=== PATIENT | female | born 2005 | race African-American/Black ===

== ENCOUNTER 2025-01-04 15:34 | Emergency (ER) | payer MEDICAID, SELFPAY ==
--- NOTE | ~2025-01-04 | US_ITS ---
EXAMINATION: US OB <= 14 weeks fetus INDICATION: vaginal bleeding, cramping, (+) test TECHNIQUE: Sonography of the pelvis was performed by transabdominal techniques. COMPARISON: None. RESULT: Uterus: 12.5 x 5.6 x 7.6 cm. Anteverted. Homogenous myometrium. Intrauterine gestational sac: Not seen. Right ovary: 4.9 x 1.5 x 2.6 cm. Vascular flow is present. No adnexal mass. Left ovary: 3.3 x 2.3 x 2.6 cm. Vascular flow is present. No adnexal mass. Pelvis free fluid: None. IMPRESSION: No intrauterine gestational sac detected. In the setting of a positive test, this would rep resent of unknown location. No sonographic evidence of ectopic . Reviewed, dictated and finalized at location K. IMPRESSION: No intrauterine gestational sac detected. In the setting of a positive pregnanc y test, this would represent of unknown location. No sonographic evid ence of ectopic .
[2025-01-04 15:38] VITALS: BP 169/96; PULSE 77; RESP 18; TEMP 36.6; O2SAT 100
[2025-01-04 18:43] LABS: BEDSIDEPREGUCG Positive (Negative)
--- NOTE | 2025-01-04 18:46 | ED_ITS ---
HPI - Female Genitourinary General Chief complaint: Vaginal Bleeding Stated complaint: vag bleeding s/p miscarriage Time Seen by Provider: 01/04/25 18:08 Source: patient Mode of arrival: ambulatory Limitations: no limitations History of Present Illness HPI Narrative: This is a 19-year-old female who presents to the ED for chief complaint of vaginal bleeding with clots for the past several days. Patient states that on December 30 she ?had a miscarriage. ? She is able to show me pictures on her phone of the aborted fetus. States that her last menstrual period was around 3 months prior to her positive home test on 11/07/2024. States she did not realize how far along she was at the time of this miscarriage. States that she was at that time. Had not seen OB before. States that she is still passing occasional clots and blood as well as having some lower abdominal cramping. Denies nausea, vomiting, syncope, lightheadedness, dizziness, fevers, chills, vaginal discharge, flank pain or urinary symptoms. Related Data Allergies Allergy/AdvReac Type Severity Reaction Status Date / Time No Known Allergies Allergy Verified 01/04/25 15:36 Review of Systems 2 Review of Systems: All systems as dictated in HPI Exam 2 Narrative: GENERAL: Well-appearing, well-nourished, and in no acute distress. HEAD: Normocephalic, atraumatic. EYES: PERRLA and EOMI. ENT: Nares clear, no rhinorrhea or epistaxis. Mucous membranes moist. Oropharynx without tonsillar hypertrophy exudate or other lesions. NECK: Supple. No adenopathy or masses. CHEST: No respiratory distress. Clear to auscultation. No wheezes rales or rhonchi HEART: Regular rate and rhythm. No murmur heard. Normal peripheral pulses. ABDOMEN: Mild suprapubic tenderness. Soft, otherwise nontender, nondistended, normal active bowel sounds. MSK: Normal range of motion. No edema. SKIN: Warm, dry, no rash. NEURO: Alert and oriented x4. No focal deficits. PSYCH: Normal mood and affect. : Pelvic exam done with female RN ultrasound tester present Pelvic exam with mild to moderate dark pooling of blood in the vaginal vault. Small amount of products of conception visualized at the cervical os. No purulent vaginal discharge. Course Vital Signs Vital signs: Vital Signs Temperature 97.8 F 01/04/25 15:38 Pulse Rate 77 01/04/25 15:38 Respiratory Rate 18 01/04/25 15:38 Blood Pressure 169/96 H 01/04/25 15:38 Pulse Oximetry 100 01/04/25 15:38 Oxygen Delivery Room Air 01/04/25 15:38 Temperature 98 F 01/04/25 19:36 Pulse Rate 71 01/04/25 19:36 Respiratory Rate 16 01/04/25 19:36 Blood Pressure 144/71 H 01/04/25 19:36 Pulse Oximetry 100 01/04/25 19:36 Oxygen Delivery Room Air 01/04/25 15:38 MDM - Female Genitourinary MDM Narrative Medical decision making narrative: This is a 19-year-old female who presents to the ED for chief complaint of vaginal bleeding in the presence of recent miscarriage. She is still having some abdominal cramping as well but no vaginal discharge. Vitals are normal. Exam is remarkable for vaginal bleeding as described, however no significant hemorrhage. No evidence for endometritis on exam or workup today. Lab work shows white count is normal at 6.5. Mild anemia with hemoglobin of 10.6. CMP unremarkable. Beta hCG quant at 193. Rh positive. Ultrasound obstetric: IMPRESSION: No intrauterine gestational sac detected. In the setting of a positive test, this would represent of unknown location. No sonographic evidence of ectopic . Patient was able to show me a picture of aborted fetus today. Feel that she is likely on the tail end of her miscarriage process. Main concern was to rule out endometritis or retained products which she does not exhibit. She is stable appearing and will be given referral for OB Gyne. Presentation consistent with incomplete . Patient will be discharged in stable condition. Supportive measures discussed and return precautions given. Patient is understanding and agreeable with plan for discharge with OB follow-up. Lab Data 01/04/25 19:01 01/04/25 19:01 Labs: Lab Results 01/04/25 01/04/25 01/04/25 Range/Units 18:39 18:40 19:01 WBC 6.5 (4.5-10.0) K/mm3 RBC 3.76 L (4.2-5.4) M/mm3 Hgb 10.6 L (12.0-15.0) g/dL Hct 33.6 L (37.0-47.0) % MCV 89.4 (80-100) fl MCH 28.2 (26-34) pg MCHC 31.5 L (32-36) g/dl RDW 14.1 (11.5-14.5) % Plt Count 242 (150-375) k/mm3 MPV 8.8 (7.4-10.4) fl Immature Gran % (Auto) 0.2 (0-0.5) % Neut % (Auto) 47.1 (45.5-73.1) % Lymph % (Auto) 41.7 (18.3-44.2) % [place] % (Auto) 7.6 (2.6-8.5) % Eos % (Auto) 2.9 (0-4.4) % Baso % (Auto) 0.5 (0.2-1.2) % Lymph # (Auto) 2.73 (0.9-3.2) K/mm3 [place] # (Auto) 0.5 (0.1-0.6) K/mm3 Eos # (Auto) 0.2 (0-0.3) K/mm3 Baso # (Auto) 0.0 (0.0-0.1) K/mm3 Abs Immat Gran (auto) 0.01 (0.00-0.031) K/mm3 Absolute Neuts (auto) 3.1 (1.3-6.7) K/mm3 Absolute Nucleated RBC 0.000 (0.0-0.012) K/mm3 Nucleated RBC % 0.0 (0.0-0.2) % PT 13.4 (11.1-14.7) Seconds INR 1.0 APTT 24.9 (22.3-36.8) Seconds Sodium 139 (134-143) mmol/L Potassium 3.9 (3.4-5.0) mmol/L Chloride 108 H (98-107) mmol/L Carbon Dioxide 23 (22-30) mmol/L Anion Gap 8 (4-12) mmol/L BUN 8 (8-21) mg/dL Creatinine 0.70 (0.7-1.0) mg/dL Estim Creat Clear Calc 149 ml/min Estimated GFR > 60 (59 - ) Glucose 92 (65-110) mg/dL Calcium 8.7 L (8.9-10.7) mg/dL Total Bilirubin 0.2 (0.2-1.3) mg/dL AST 24 (14-36) U/L ALT 26 (6-35) U/L Alkaline Phosphatase 58 (45-116) U/L Total Protein 7.0 (6.3-8.6) g/dL Albumin 3.9 (3.7-5.6) g/dL Beta HCG, Quant 193.70 mIU/ML Urine Color Yellow (Yellow) Urine Appearance Cloudy H (Clear) Urine pH 7.5 (5.0-9.0) Ur Specific [place] 1.028 (1.001-1.035) Urine Protein 1+ H (Negative) mg/dL Urine Glucose (UA) Negative (Negative) mg/dL Urine Ketones Trace H (Negative) mg/dL Ur Blood (Man) 3+ H (Negative) Urine Nitrate Negative (Negative) Urine Bilirubin Negative (Negative) Urine Urobilinogen 1.0 (<2.0) mg/dL Leukocyte Esterase Rfl 1+ H (Negative) RICHARD/UL Urine RBC 21-50 H (0-2) /hpf Urine WBC 11-20 H (0-3) /hpf Ur Squamous Epith Cells Moderate (Few) /hpf Urine Bacteria 2+ H /hpf Urine Casts 0-2 POC Urine HCG, Qual Positive (Negative) Blood Type A Positive Antibody Screen Negative Screen Not Reportable Baby's Blood Type Not Reportable Baby's JOSELIN Not Reportable Doses of RhIg Required 0 Discharge Plan Discharge Clinical Impression: Incomplete Patient Disposition: Home, Self-Care Condition: Stable Instructions: Antibiotic Form, Miscarriage (ED) Additional Instructions: Your exam and imaging today are reassuring overall. This is probably a miscarriage which is still completing its course. Please follow-up with OBGYN as soon as possible for definitive management of this issue. If you have any new or worsening symptoms please return to the ER for further evaluation. Patient Language: Kosovan Follow-up/Referrals: Austin Hammer MD [Physician] - PHYSICIAN,CLAIMS ADJUSTER [Primary Care Provider] - Stand Alone Forms: Work/School Release IP Time of Disposition: 19:44
[2025-01-04 18:49] LABS: Add Urine Microscopic? YES; Appearance Urine Cloudy (Clear); Bacteria Urine 2+ /hpf; Bilirubin Urine Negative (Negative); Blood Urine 3+ (Negative); Color Urine Yellow (Yellow); Glucose Urine UA Negative (Negative); Ketones Urine Trace mg/dL (Negative); Leukocyte Esterase Ur 1+ LEU/UL (Negative); Nitrate Urine Negative (Negative); Non Pathogenic Casts 0-2; Protein Urine 1+ mg/dL (Negative); RBC Urine 21-50 /hpf (0-2); Specific Grav Ur 1.028 (1.001-1.035); Squamous Epithelial Cell Urine Moderate /hpf (Few); pH Urine 7.5 (5.0-9.0)
--- NOTE | 2025-01-04 18:59 | PC.NURSE ---
patient currently in cat scan when I attempted to obtain blood from patient.
[2025-01-04 19:02] VITALS: BP 148/89; PULSE 61; RESP 18; O2SAT 100
[2025-01-04 19:09] LABS: Basophils Percent Auto 0.5 % (0.2-1.2); Eosinophils Absolute Auto 0.2 K/mm3 (0-0.3); Eosinophils Percent Auto 2.9 % (0-4.4); Hematocrit 33.6 % (37.0-47.0); Hemoglobin 10.6 g/dL (12.0-15.0); Immature Granulocyte Absolute 0.01 K/mm3 (0.00-0.031); Immature Granulocyte Percent A 0.2 % (0-0.5); Lymphocytes Absolute Auto 2.73 K/mm3 (0.9-3.2); Lymphocytes Percent Auto 41.7 % (18.3-44.2); Mean Corpuscular HGB Conc 31.5 g/dl (32-36); Mean Corpuscular Hemoglobin 28.2 pg (26-34); Mean Corpuscular Volume 89.4 fl (80-100); Mean Platelet Volume 8.8 fl (7.4-10.4); Monocytes Absolute Auto 0.5 K/mm3 (0.1-0.6); Monocytes Percent Auto 7.6 % (2.6-8.5); Neutrophils Absolute Auto 3.1 K/mm3 (1.3-6.7); Neutrophils Percent Auto 47.1 % (45.5-73.1); Platelet Count Result 242 k/mm3 (150-375); Red Blood Count 3.76 M/mm3 (4.2-5.4); Red Cell Distribution Width 14.1 % (11.5-14.5); White Blood Count 6.5 K/mm3 (4.5-10.0)
[2025-01-04] MEDS: KETOROLAC 15 MG/ML VIAL (*BKC) IV PUSH (19:10)
[2025-01-04 19:18] LABS: Alanine Aminotransferase 26 U/L (6-35); Albumin Level 3.9 g/dL (3.7-5.6); Alkaline Phosphatase 58 U/L (45-116); Anion Gap 8 mmol/L (4-12); Aspartate Amino Transferase 24 U/L (14-36); Bilirubin,Total 0.2 mg/dL (0.2-1.3); Blood Urea Nitrogen 8 mg/dL (8-21); Calcium 8.7 mg/dL (8.9-10.7); Carbon Dioxide 23 mmol/L (22-30); Chloride 108 mmol/L (98-107); Estimated CRCL calculation 149 ml/min; Estimated Glomerular Filt Rate > 60; Glucose 92 mg/dL (65-110); Potassium 3.9 mmol/L (3.4-5.0); Sodium 139 mmol/L (134-143)
[2025-01-04 19:20] LABS: Partial Thromboplastin Time 24.9 Seconds (22.3-36.8); Prothrombin Time 13.4 Seconds (11.1-14.7)
[2025-01-04 19:36] VITALS: BP 144/71; PULSE 71; RESP 16; TEMP 36.6; O2SAT 100
--- NOTE | 2025-01-04 19:36 | PC.NURSE ---
received report from previous RN for continuous of care. Pt lying on stretcher respirations even and unlabored. Pt c/o 5/10 lower abdominal pain, refer to MAR for medication administration.
--- NOTE | 2025-01-04 19:37 | PC.NURSE ---
Assisting PA during pelvic exam
== END 2025-01-04 20:26 | disposition home or self-care (01) ==
PROVIDERS: Student in an Organized Health Care Education/Training Program; Emergency Provider Physician Assistant
DX: O03.4 Incomplete spontaneous abortion without complication (principal)
CPT/HCPCS: 36415; 76801; 80053; 81001; 81025; 84702; 85025; 85461; 85610; 85730; 86850; 86900; 86901; 96374; 99284; J1885

== ENCOUNTER 2025-03-07 10:52 | Emergency (ER) | payer SELFPAY ==
--- NOTE | 2025-03-07 11:28 | ED_ITS ---
HPI - Dental/Oral General Chief complaint: Dental/Oral Stated complaint: R sided mouth pain and DRIVER Time Seen by Provider: 03/07/25 10:59 History of Present Illness HPI Narrative: Patient is a 19-year-old female who presents ER with tenderness to tooth number 7. She accidentally dropped something on her face few days ago and it struck her brace is causing her pain and tooth. Symptoms have not gotten better with naproxen. She has radiating pain up into her right temporal area. She is having headache. No change in vision or hearing. No facial swelling. Related Data Allergies Allergy/AdvReac Type Severity Reaction Status Date / Time No Known Allergies Allergy Verified 01/04/25 15:36 Review of Systems Constitutional: Constitutional: Reports no additional constitutional complaints ENT: Reports system reviewed and no additional complaints, except as documented Neurologic: Reports system reviewed and no additional complaints, except as documented PMFSH Past Medical History Medical History (Updated 03/07/25 @ 11:56 by Clemente Castillo MD) Healthy female adult Exam Narrative: GENERAL: Well-appearing, well-nourished, and in no acute distress. HEAD: Normocephalic, atraumatic. ENT: Mucous membranes moist. Tenderness over tooth 7. Without fracture. No obvious abscess. CHEST: Clear to auscultation. No respiratory distress. HEART: Regular rate and rhythm. Normal peripheral pulses. EXTREMITIES: Normal range of motion. No edema. NEURO: Alert and oriented x3. PSYCH: Normal mood and affect. Course Course Emergency Course: Patient resting comfortably. Discussed treatment with scheduled anti- inflammatories and Tylenol. Will also place on antibiotic in case she has a developing infection from the trauma. Vital Signs Vital signs: Vital Signs Temperature 97.8 F 03/07/25 11:40 Pulse Rate 74 03/07/25 11:40 Respiratory Rate 18 03/07/25 11:40 Blood Pressure 125/83 03/07/25 11:40 Pulse Oximetry 98 03/07/25 11:40 Oxygen Delivery Room Air 03/07/25 11:40 Temperature 97.8 F 03/07/25 11:40 Pulse Rate 74 03/07/25 11:40 Respiratory Rate 18 03/07/25 11:40 Blood Pressure 125/83 03/07/25 11:40 Pulse Oximetry 98 03/07/25 11:40 Oxygen Delivery Room Air 03/07/25 11:40 Discharge Plan Discharge Clinical Impression: Toothache Patient Disposition: Home Condition: Stable Instructions: Antibiotic Form, Toothache (ED) Additional Instructions: Return ER if you have difficulty breathing, have difficulty swelling, you have worsening headache, have additional concerns. Patient Language: Dominican Prescriptions: New acetaminophen 500 mg capsule 500 mg PO Q6H PRN (Reason: pain) Qty: 30 0RF amoxicillin-pot clavulanate 875-125 mg tablet 1 tablet PO Q12H Qty: 20 0RF Follow-up/Referrals: PHYSICIAN,SYSTEMS DESIGN ENGINEER [Primary Care Provider] - Stand Alone Forms: Work/School Release IP
[2025-03-07 11:40] VITALS: BP 125/83; PULSE 74; RESP 18; TEMP 36.6; O2SAT 98
[2025-03-07] MEDS: ACETAMINOPHEN 325 MG TABLET 650 MG PO (12:16)
== END 2025-03-07 12:19 | disposition home or self-care (01) ==
LOC: ANHED 11:58
PROVIDERS: Emergency Provider Emergency Medicine
DX: K08.89 Other specified disorders of teeth and supporting structures (principal)
CPT/HCPCS: 99283; A9270